=== PATIENT | male | born 1940 | race Caucasian/White ===

== ENCOUNTER 2017-05-30 15:24 | Inpatient (IN) | payer MEDICARE, MEDICAID ==
[~2017-05-30] VITALS: Ht 180.3 cm; Wt 94.2 kg
[2017-05-30] MEDS ORDERED: ALBUTEROL SULF 2.5 MG/0.5ML(0.5%) NEB SOLN NEB ONE (16:00)
[2017-05-30] MEDS ORDERED: IPRATROPIUM BROM 0.5 MG/2.5ML INH SOL NEB ONE (16:00)
[2017-05-30] MEDS ORDERED: SODIUM CHLORIDE 0.9% 1,000 ML IV ONE (16:00)
[2017-05-30 16:23] LABS: Basophils # (auto) 0.1 uL; Basophils % (auto) 0.6 % (0.0-2.0); Eosinophils # (auto) 0.1 uL; Eosinophils % (auto) 1.2 % (0.0-7.0); Hematocrit 38.9 % (41.0-53.0); Hemoglobin 12.5 g/dL (13.5-17.5); Lymphocytes % (auto) 11.6 % (10.0-50.0); Mean Corpuscular Hemoglobin 29.4 pg (28.0-32.0); Mean Corpuscular Hgb Conc. 32.2 g/dL (32.0-36.0); Mean Corpuscular Volume 91.2 fL (80.0-100.0); Mean Platelet Volume 6.3 fL (6.9-10.8); Monocytes # (auto) 0.6 uL; Monocytes % (auto) 6.9 % (0.0-12.0); Neutrophils # (auto) 6.6 uL; Neutrophils % (auto) 79.7 % (37.0-80.0); Platelet Count (auto) 213 10^3/uL (140-450); Red Cell Distribution Width 15.4 % (11.8-14.3); White Blood Cell 8.3 10^3/uL (4.4-10.8)
[2017-05-30 16:45] LABS: Albumin 3.2 g/dL (3.4-5.0); Alkaline Phosphatase 83 U/L (45-117); Anion Gap 4 (5-15); Aspartate Aminotransferase 9 U/L (15-37); BUN/Creatinine Ratio 15.3; Bilirubin, Total 0.7 mg/dL (0.2-1.0); Blood Urea Nitrogen 11 mg/dL (7-18); Calcium 8.8 mg/dL (8.5-10.1); Carbon Dioxide 35 mmol/L (21-32); Chloride 97 mmol/L (98-107); GFR African American 137 mL/min; GFR Non-African American 113 mL/min; Glucose 100 mg/dL (74-106); Potassium 4.3 mmol/L (3.5-5.1); Sodium 136 mmol/L (136-145); Total Protein 7.5 g/dL (6.4-8.2)
[2017-05-30] MEDS ORDERED: cefTRIAXone 1GM/50ML D5W 50 ML IV ONE (17:30)
[2017-05-30] MEDS ORDERED: DOXYCYCLINE HYC 100MG/250ML 250 ML IV SCH (19:15)
[2017-05-30] MEDS ORDERED: ACETAMINOPHEN 325 MG TAB PO PRN (19:30)
[2017-05-30] MEDS ORDERED: NITROGLYCERIN 0.4 MG SL TAB SL PRN (19:30)
[2017-05-30] MEDS ORDERED: DOCUSATE SOD 100 MG CAP PO PRN (19:30)
[2017-05-30] MEDS ORDERED: MORPHINE SULF INJ 2 MG/ML SYRINGE 1ML IV PRN ×2 (19:30)
[2017-05-30] MEDS ORDERED: DOXYCYCLINE HYC 100MG/250ML 250 ML IV ONE (19:30)
[2017-05-30] MEDS ORDERED: TEMAZEPAM 15 MG CAP PO PRN (19:30)
[2017-05-30] MEDS ORDERED: ONDANSETRON HCL 4 MG/2 ML VIAL IV PRN (19:30)
[2017-05-30 19:54] LABS: Urine Bilirubin Negative (Negative); Urine Blood Negative /uL (Negative); Urine Color Yellow (Yellow); Urine Glucose Normal (Normal); Urine Ketone TRACE (Negative); Urine Mucus FEW (None Seen); Urine Nitrite Negative (Negative); Urine RBC 8 /hpf (0 - 3); Urine Urobilinogen Normal (Negative)
[2017-05-30 20:08] LABS: B-Type Natriuretic Peptide 25.07 pg/mL (0-100)
[2017-05-30 20:12] VITALS: BP 141/94
[2017-05-30 20:14] LABS: Temperature: 23.3 C (20.0-25.0)
[2017-05-30 21:11] VITALS: BP 176/82
[2017-05-30 21:15] VITALS: BP 176/82
[2017-05-30] MEDS: SODIUM CHLOR 0.9% PF (SALINE LOCK) 10ML VIAL IV SCH (21:59)
[2017-05-30] MEDS: ATORVASTATIN 20 MG TAB PO SCH (21:59)
[2017-05-30] MEDS: FAMOTIDINE 20 MG TAB PO SCH (22:00)
[2017-05-30] MEDS: ASCORBIC ACID 500 MG TAB PO SCH (22:00)
[2017-05-30] MEDS: GABAPENTIN 300 MG CAP PO SCH (22:00)
[2017-05-30] MEDS: METOPROLOL TARTRATE 25 MG TAB PO SCH (22:01)
[2017-05-31] MEDS: IPRATROPIUM BROM 0.5 MG/2.5ML INH SOL NEB SCH ×5 (02:47→23:42)
[2017-05-31] MEDS: ALBUTEROL SULF 2.5 MG/0.5ML(0.5%) NEB SOLN NEB SCH ×5 (02:48→23:42)
[2017-05-31 04:35] VITALS: BP 153/78
[2017-05-31] MEDS: GABAPENTIN 300 MG CAP PO SCH ×3 (05:52→21:03)
[2017-05-31] MEDS: SODIUM CHLOR 0.9% PF (SALINE LOCK) 10ML VIAL IV SCH ×3 (05:52→21:04)
[2017-05-31 06:48] LABS: Basophils # (auto) 0 uL; Basophils % (auto) 0.4 % (0.0-2.0); Eosinophils # (auto) 0.1 uL; Eosinophils % (auto) 1.5 % (0.0-7.0); Hematocrit 34.1 % (41.0-53.0); Hemoglobin 11.3 g/dL (13.5-17.5); Lymphocytes # (auto) 1.5 uL; Lymphocytes % (auto) 20.1 % (10.0-50.0); Mean Corpuscular Hemoglobin 29.9 pg (28.0-32.0); Mean Corpuscular Hgb Conc. 33.1 g/dL (32.0-36.0); Mean Corpuscular Volume 90.3 fL (80.0-100.0); Mean Platelet Volume 6.3 fL (6.9-10.8); Monocytes # (auto) 0.7 uL; Monocytes % (auto) 9.9 % (0.0-12.0); Neutrophils # (auto) 5.1 uL; Neutrophils % (auto) 68.1 % (37.0-80.0); Platelet Count (auto) 201 10^3/uL (140-450); Red Cell Distribution Width 14.7 % (11.8-14.3); White Blood Cell 7.5 10^3/uL (4.4-10.8)
[2017-05-31 06:56] LABS: Chloride 101 mmol/L (98-107); Sodium 140 mmol/L (136-145)
[2017-05-31 06:59] LABS: Albumin 2.8 g/dL (3.4-5.0); BUN/Creatinine Ratio 18.3; Blood Urea Nitrogen 11 mg/dL (7-18); Calcium 8.7 mg/dL (8.5-10.1); Carbon Dioxide 34 mmol/L (21-32); GFR African American 169 mL/min; GFR Non-African American 140 mL/min; Glucose 90 mg/dL (74-106)
[2017-05-31 07:04] LABS: Anion Gap 5 (5-15)
[2017-05-31 07:06] LABS: Alkaline Phosphatase 66 U/L (45-117); Aspartate Aminotransferase 11 U/L (15-37); Bilirubin, Total 0.7 mg/dL (0.2-1.0); Total Protein 6.5 g/dL (6.4-8.2)
[2017-05-31] MEDS: BOOST PLUS 8 ounce PO SCH ×3 (08:00→17:30)
[2017-05-31] MEDS: CLOPIDOGREL BISULFATE 75 MG TAB PO SCH (08:46)
[2017-05-31] MEDS: MULTIPLE VITAMIN TAB PO SCH (08:46)
[2017-05-31] MEDS: ASCORBIC ACID 500 MG TAB PO SCH ×2 (08:46→21:03)
[2017-05-31] MEDS: ZINC SULFATE 220 MG CAP PO SCH (08:46)
[2017-05-31] MEDS: FAMOTIDINE 20 MG TAB PO SCH ×2 (08:46→21:03)
[2017-05-31] MEDS: METOPROLOL TARTRATE 25 MG TAB PO SCH ×2 (08:47→21:03)
[2017-05-31] MEDS: HYDROcodone-ACET 5/325MG TAB PO PRN ×2 (08:47→22:53)
[2017-05-31 09:28] VITALS: BP 142/67
[2017-05-31] MEDS: DOXYCYCLINE HYC 100MG/250ML 250 ML IV SCH ×2 (10:13→21:04)
[2017-05-31 13:00] VITALS: BP 136/68
[2017-05-31 16:34] VITALS: BP 144/71
[2017-05-31] MEDS ORDERED: HYDR-531 PO (17:17)
[2017-05-31] MEDS ORDERED: SIMV5TAB50 PO (17:17)
[2017-05-31] MEDS ORDERED: ALBUAER3 IN (17:17)
[2017-05-31] MEDS ORDERED: METO25TA5 PO (17:18)
[2017-05-31] MEDS ORDERED: FAMO-12 PO (17:18)
[2017-05-31] MEDS ORDERED: GABA-494 PO (17:20)
[2017-05-31] MEDS ORDERED: ALBU0.084 IN (17:20)
[2017-05-31] MEDS ORDERED: CLOP75TA41 PO (17:20)
[2017-05-31] MEDS ORDERED: IPRAAER6 IN (17:25)
[2017-05-31] MEDS ORDERED: POM INH (17:29)
[2017-05-31] MEDS: ATORVASTATIN 20 MG TAB PO SCH (21:03)
[2017-05-31 22:00] VITALS: BP 214/103
[2017-06-01 05:18] VITALS: BP_DIAS 63
[2017-06-01] MEDS: SODIUM CHLOR 0.9% PF (SALINE LOCK) 10ML VIAL IV SCH ×2 (06:08→14:14)
[2017-06-01] MEDS: GABAPENTIN 300 MG CAP PO SCH ×2 (06:08→15:36)
[2017-06-01] MEDS: IPRATROPIUM BROM 0.5 MG/2.5ML INH SOL NEB SCH ×3 (06:37→18:45)
[2017-06-01] MEDS: ALBUTEROL SULF 2.5 MG/0.5ML(0.5%) NEB SOLN NEB SCH ×3 (06:37→18:45)
[2017-06-01 08:00] VITALS: BP 125/62
[2017-06-01] MEDS: BOOST PLUS 8 ounce PO SCH ×3 (08:00→18:00)
[2017-06-01 10:20] VITALS: BP 125/62
[2017-06-01] MEDS: MULTIPLE VITAMIN TAB PO SCH (10:33)
[2017-06-01] MEDS: METOPROLOL TARTRATE 25 MG TAB PO SCH (10:33)
[2017-06-01] MEDS: DOXYCYCLINE HYC 100MG/250ML 250 ML IV SCH (10:33)
[2017-06-01] MEDS: ZINC SULFATE 220 MG CAP PO SCH (10:33)
[2017-06-01] MEDS: FAMOTIDINE 20 MG TAB PO SCH (10:34)
[2017-06-01] MEDS: CLOPIDOGREL BISULFATE 75 MG TAB PO SCH (10:34)
[2017-06-01] MEDS: ASCORBIC ACID 500 MG TAB PO SCH (10:34)
[2017-06-01 14:00] VITALS: BP 168/97
[2017-06-01] MEDS ORDERED: LISINOPRIL 20 MG TAB PO ONE (14:00)
[2017-06-01] MEDS: HYDROcodone-ACET 5/325MG TAB PO PRN ×2 (14:13→15:36)
[2017-06-01 17:17] VITALS: BP 137/81
[2017-06-01 17:20] VITALS: BP 126/64
[2017-06-01 19:35] LABS: Allen Test Yes; Base Excess 9.3 mmol/L (-2.0-2.0); Blood 02Sat 88.9 % (96-100); Blood MetHb 0.4 % (0.0-1.5); HCO3 38.4 mmol/L (22-26.0); HHb 11.1 % (0.0-5.0); MODE NASAL CANNULA; O2Hb 88.5 % (94.0-97.0); PCO2 76.6 mmHg (35.0-45.0); PCO2(T) 76.6 mmHg (35.0-45.0); PO2 60.4 mmHg (80.0-100.0); PO2(T) 60.4 mmHg (80.0-100.0); Room 0287T; Sample Type Arterial; pH 7.318 (7.350-7.450)
[2017-06-02] MEDS ORDERED: amLODIPine BESYLATE 5 MG TAB PO SCH (10:00)
== END 2017-06-01 20:35 | disposition home or self-care (01) | DRG 602 ==
LOC: ER 15:27 → TELE 15:28 → TELE-WESTW 20:43
PROVIDERS: ADMIT Internal Medicine; ATTEND Internal Medicine Pulmonary Disease
DX: L03.116 Cellulitis of left lower limb (principal); I50.43 Acute on chronic combined systolic (congestive) and diastolic (congestive) heart failure; E44.0 Moderate protein-calorie malnutrition; L97.929 Non-pressure chronic ulcer of unspecified part of left lower leg with unspecified severity; J44.1 Chronic obstructive pulmonary disease with (acute) exacerbation; J45.901 Unspecified asthma with (acute) exacerbation; I87.2 Venous insufficiency (chronic) (peripheral); L03.115 Cellulitis of right lower limb; D63.8 Anemia in other chronic diseases classified elsewhere; Z68.28 Body mass index [BMI] 28.0-28.9, adult; I70.90 Unspecified atherosclerosis; I87.8 Other specified disorders of veins; I11.0 Hypertensive heart disease with heart failure; I70.0 Atherosclerosis of aorta; Z88.0 Allergy status to penicillin; Z88.2 Allergy status to sulfonamides; Z79.899 Other long term (current) drug therapy; Z68.29 Body mass index [BMI] 29.0-29.9, adult
CPT/HCPCS: 36415; 36600; 71010; 80053; 81001; 82805; 83735; 83880; 84443; 84484; 85025; 87040; 87070; 87205; 93005; 93306; 94640; 94761; 96361; 96365; 96367; J0696; J3490